=== PATIENT | male | born 2000 | race Caucasian/White ===

== ENCOUNTER 2021-03-26 13:48 | Emergency (ER) | payer OTHER ==
[2021-03-26] MEDS ORDERED: FLONASE 0.05% N16 GM (17:04)
[2021-03-26] MEDS ORDERED: MEDROL DOSEPAK 24 MG PO (17:04)
== END 2021-03-26 17:12 | disposition home or self-care (01) ==
LOC: ER1 13:48
DX: U07.1 COVID-19 (principal)
CPT/HCPCS: 0240U; 87081; 87880; 99283